=== PATIENT | male | born 1990 | race Caucasian/White ===

== ENCOUNTER 2023-04-12 05:29 | Inpatient (IN) | payer SELFPAY ==
[2023-04-12] VITALS (25 sets, daily range): BP systolic 71–138; BP diastolic 32–86; PULSE 88–125; RESP 10–23; TEMP 36.1–37.8; O2SAT 75–98; BMI 30.4; BMI 30.2
[2023-04-12] MEDS: Ondansetron 4 MG/2 ML Vial IV ×2 (05:37→05:52)
[2023-04-12] MEDS: Nitroglycerin (INPATIENT USE) 0.4 MG TAB.SUBL 0.400000000000000022 MG SL (05:57)
--- NOTE | 2023-04-12 05:59 | ED.RN ---
PT VOMITED [facility]B HOP AND TWICE ONCE AT [facility], PT WAS MEDICATED WITH ZOFRAN AT 0537 AND 0552, CPS AT BEDSIDE WITH BIPAP, OXYGEN 88% ON 15L HIGH FLOW OXYGEN.
[2023-04-12 06:03] LABS: Absolute Lymphocyte Count 2.44 X10^3/uL (0.83-4.51); Absolute Neutrophil Count 5.1 X10^3/uL (2.0-7.7); Basophil# 0.07 X10^3/uL; Basophil% 0.9 % (0-1); Eosinophil# 0.03 X10^3/uL; Eosinophils% 0.4 % (0-5); Hematocrit 48.2 % (40-54); Hemoglobin 14.8 g/dL (13.0-16.5); Lymphocyte # 2.44 X10^3/ul (0.83-4.51); Lymphocyte % 29.8 % (19-41); Mean Corp Hgb Conc 30.7 g/dL (32-36); Mean Corpuscular Hgb 28.8 pg (27.0-32.0); Mean Platelet Vol. 8.7 fl (6.2-12.0); Monocyte% 6.1 % (0-10); NRBC Flagged by Analyzer 0 % (0-5); Neutrophil # 5.09 X10^3/uL (2.7-7.7); Neutrophil % 61.9 % (47-70); Platelet Count 432 K/mm3 (150-450); RBC Distribution Width CV 13.1 % (11.6-14.6); RBC Distribution Width SD 45.5 fl (35.1-43.9); Red Blood Count 5.13 M/mm3 (4.6-6.2); White Blood Count 8.2 K/mm3 (4.4-11.0)
--- NOTE | 2023-04-12 06:16 | RAD_ITS ---
INDICATION: dyspnea EXAMINATION/TECHNIQUE: X-RAY - XR Chest 1 View AP portable. 6:21 AM COMPARISON: None. FINDINGS: LINES/DEVICES: None. LUNGS: Alveolar infiltrates throughout the right lung and in the left upper lobe. No pneumothorax. MEDIASTINUM: Unremarkable. CARDIAC SILHOUETTE: Not enlarged. BONES AND SOFT TISSUES: No acute abnormalities. RAD/Chest 1 View (Portable) IMPRESSION: Bilateral airspace disease consistent with pneumonia. Electronically Signed: Nydia Fowler MD at 6:52 EST ,
[2023-04-12 06:18] LABS: Anion Gap 15 (5-15); BUN 11 mg/dL (7-18); BUN/Creat Ratio 7.2 RATIO (10-20); Calcium,Total 7.9 mg/dL (8.5-10.1); Chloride 109 mmol/L (98-107); Creatinine, Serum 1.53 mg/dL (0.70-1.30); EST Glomerular Filtration Rate 56 mL/min (>60); Est Glom Filt Rate - Afr Amer 68 mL/min (>60); Estimated Creatinine Clearance 75.37 ml/min; Glucose 198 mg/dL (74-106); Potassium 3.6 mmol/L (3.5-5.1); Sodium Level 143 mmol/L (136-145)
[2023-04-12] MEDS: Ampicillin/Sulbactam 3 GM in 0.9% Normal Saline (100mL MB+) 100 ML IV (06:46)
--- NOTE | 2023-04-12 07:00 | CPS ---
BiPAP mask removed, patient stating he was going to vomit. Place on 13lpm high flow nasal cannula. RN alerted. BiPAP on standby, aware.
[2023-04-12] MEDS: Metoclopramide 10 MG/2 ML Vial IV (07:11)
--- NOTE | 2023-04-12 07:24 | CT_ITS ---
STUDY: CT CHEST WITHOUT CONTRAST REASON FOR EXAM: Male, 32 years old. Pulmonary edema RADIATION DOSAGE (If Supplied By Facility): CTDIvol = ( 18.01 ) mGy, DLP = ( 648.01 ) mGycm TECHNIQUE: Transaxial imaging was performed without the administration of intravenous contrast material. Individualized dose optimization techniques were used for this CT. COMPARISON: Chest x-ray dated April 12, 2023 FINDINGS: Mild patchy consolidation with groundglass edema is present throughout the bilateral upper lobes and the right lower lobe. Mild patchy infiltrates are also present in the posterior medial aspect of the left lower lobe. The small islands of consolidation with adjacent groundglass edema is a pattern typically seen with Covid 19 pneumonia. There is no demonstrated pleural abnormality. Normal heart and pericardium. There are no demonstrated calcifications of the coronary arteries. Normal mediastinum. Normal hilar regions. Normal unenhanced pulmonary arteries. Normal aorta arch and descending thoracic aorta. Normal osseous structures. There is no demonstrated abnormality of the visualized upper abdomen. CT/Chest without Contrast IMPRESSION: Mild multifocal pneumonia 1. Mild patchy consolidation with groundglass edema is present throughout the bilateral upper lobes and the right lower lobe. Mild patchy infiltrates are also present in the posterior medial aspect of the left lower lobe. The small islands of consolidation with adjacent groundglass edema is a pattern typically seen with Covid 19 pneumonia. Electronically Signed: Osiel Soto MD at 8:51 EST ,
--- NOTE | 2023-04-12 07:25 | EKG12_ITS ---
Test Reason : TACHY Blood Pressure : / mmHG Vent. Rate : 093 BPM Atrial Rate : 093 BPM P-R Int : 162 ms QRS Dur : 092 ms QT Int : 366 ms P-R-T Axes : 063 075 050 degrees QTc Int : 455 ms Normal sinus rhythm Normal ECG Confirmed by PRITI BAKER, JERRY ([id number]), associate entertainment editor EMILY BURCIAGA ([id number]) on 04/14/2023 8:38:04 AM Referred By: Confirmed By:JERRY MARCOS MD
[2023-04-12 07:26] LABS: BNP,B-Type NATRIURETIC PEPTIDE 5.7 pg/mL (0-100)
[2023-04-12 07:28] LABS: Amphetamine Urine VISTA NEGATIVE (<1000 ng/mL); Barbiturate Urine VISTA NEGATIVE (< 200 ng/mL); Benzodiazepine Urine VISTA NEGATIVE (< 200 ng/mL); Cocaine Urine VISTA POSITIVE (< 300 ng/mL); Ecstacy Urine VISTA NEGATIVE (< 500 ng/mL); Methadone Urine VISTA NEGATIVE (< 300 ng/mL); PCP Urine VISTA NEGATIVE (< 25 ng/mL); THC Urine VISTA NEGATIVE (< 50 ng/mL); Vista UDS pH Range 5
--- NOTE | 2023-04-12 07:28 | NURSING ---
DR ALOK TATE
--- NOTE | 2023-04-12 07:33 | NURSING ---
NO OLD EKGS
[2023-04-12] MEDS: 0.9% Normal Saline (1000mL) 1,000 ML 999 ML IV ×2 (07:39→08:21)
--- NOTE | 2023-04-12 07:46 | EX.ED.DYSGE1 ---
HPI History of Present Illness Chief Complaint: Overdose Informant: EMS Narrative Narrative: Patient is a 32-year-old male brought in by EMS. EMS states that they were called to a alliance party where multiple people had overdosed. They state when they arrived the patient was unresponsive and breathing minimally. They state they gave 7 doses of Narcan before he began to arouse. They state that his mental status has continued to be depressed and he has been having bouts of nausea and vomiting with increased work of breathing. Patient admits to alcohol use this evening but denies any illicit drug use and is unsure of what happened caused him to be in the hospital [facility] Medical History no medical history no medical history Home Medications NK 04/12/23 [History Last Taken Unknown] Allergy/AdvReac Type Severity Reaction Status Date / Time No Known Allergies Allergy Verified 04/12/23 05:39 Social History Smoking Status: Never smoker ROS ROS ED ROS Narrative Review of systems is unable to be obtained secondary to patient's difficulty breathing EXAM Physical Exam Const Vital Signs: 04/12/23 05:39 04/12/23 05:45 04/12/23 06:02 Temperature 96.9 F L 96.9 F L Temperature Source Temporal Temporal Pulse Rate 107 H 107 H 120 H Respiratory Rate 18 18 18 Respiratory Pattern Blood Pressure 121/64 H 114/64 78/52 L Blood Pressure Mean 83 80 60 Pulse Ox 75 87 85 Oxygen Delivery Method Room Air High Flow High Flow Oxygen Flow Rate (L/min) 15 15 Fraction of Inspired Oxygen (FIO2) 04/12/23 06:04 04/12/23 06:07 04/12/23 05:57 Temperature Temperature Source Pulse Rate 116 H 115 H 107 H Respiratory Rate 18 18 Respiratory Pattern Blood Pressure 71/55 L 92/63 121/64 H Blood Pressure Mean 60 72 Pulse Ox 87 85 Oxygen Delivery Method High Flow High Flow Oxygen Flow Rate (L/min) 15 15 Fraction of Inspired Oxygen (FIO2) 04/12/23 06:23 04/12/23 06:31 04/12/23 06:15 Temperature Temperature Source Pulse Rate 96 92 105 H Respiratory Rate 18 18 18 Respiratory Pattern Normal Blood Pressure 92/32 L 94/35 L Blood Pressure Mean 52 54 Pulse Ox 97 97 96 Oxygen Delivery Method Bi-pap Bi-pap Oxygen Flow Rate (L/min) Fraction of Inspired Oxygen (FIO2) 100 90 100 04/12/23 06:15 04/12/23 06:29 04/12/23 06:53 Temperature Temperature Source Pulse Rate 101 H 92 Respiratory Rate 20 H 18 Respiratory Pattern Blood Pressure 110/67 Blood Pressure Mean 81 Pulse Ox 85 97 97 Oxygen Delivery Method Nasal Cannula Bi-pap Oxygen Flow Rate (L/min) Fraction of Inspired Oxygen (FIO2) 90 75 04/12/23 06:53 04/12/23 07:17 04/12/23 06:35 Temperature Temperature Source Pulse Rate 88 101 H Respiratory Rate 18 23 H Respiratory Pattern Blood Pressure 110/67 Blood Pressure Mean 81 Pulse Ox 97 95 98 Oxygen Delivery Method High Flow Oxygen Flow Rate (L/min) 14 Fraction of Inspired Oxygen (FIO2) 75 04/12/23 07:17 04/12/23 08:08 Temperature 97.2 F L 97.8 F Temperature Source Temporal Temporal Pulse Rate 89 102 H Respiratory Rate 20 H 20 H Respiratory Pattern Blood Pressure 97/52 L 96/86 H Blood Pressure Mean 67 89 Pulse Ox 95 97 Oxygen Delivery Method High Flow High Flow Oxygen Flow Rate (L/min) 14 11 Fraction of Inspired Oxygen (FIO2) Positive well nourished and well developed Constitutional Narrative: Patient has depressed mental status with GCS 13. He is in moderate respiratory distress with tachypnea and accessory muscle use and pulse ox of 75% on room air General Appearance ED: well developed HEENT HEENT Narrative: No tongue or lip swelling No airway edema or compromise Normocephalic atraumatic Eyes EOMs intact bilaterally Eyes Narrative: Pupils are midpoint and sluggish to respond to light There is mild scleral injection bilaterally consistent with reported alcohol use Neck supple Neck Narrative: No bony deformity or step-off of the cervical spine No nuchal rigidity noted Chest Wall palpation of chest normal Chest Narrative: No bony deformity or crepitance noted Resp Resp Narrative: Patient is in respiratory distress with tachypnea and accessory muscle use Breath sounds are diminished throughout with diffuse rhonchi Cardio regular rhythm Rate: tachycardic and other Other Details: Tachycardic rate with regular rhythm no murmurs rubs or gallops noted GI non-tender, non-distended and no masses GI Narrative: Abdomen is soft nontender and nondistended with hypoactive bowel sounds No pulsatile mass or fluid wave noted No voluntary guarding or rigidity Auscultation: hypoactive bowel sounds Palpation: soft Extremity normal to inspection Extremity Narrative: No asymmetric edema no pitting edema negative Homans' sign bilaterally Neuro CN's II-XII intact bilaterally Neuro Narrative: Patient is obtunded with GCS of 13 however there are no focal neurologic deficits noted Sensorium / Orientation: alert Psych Psych Narrative: Patient has a flat affect Skin no rashes or lesions noted Skin Narrative: Skin is pale in color No abrasions or ecchymosis to suggest trauma MDM MDM MDM Narrative Medical decision making narrative: Patient presented to the ER in acute respiratory distress with hypoxia. Based on his opioid overdose and bouts of vomiting there is concern for aspiration but as he was given multiple doses of Narcan and has been bringing up pink frothy sputum there is also concern for flash pulmonary edema. Secondary to his fluids were held and after his nausea and vomiting was controlled he was started on BiPAP. BiPAP brought his pulse ox up from the low 80s on 15 L nasal cannula to the mid 90s. X-ray confirmed pulmonary edema versus aspiration and it was greater on the right indicating this is most likely aspiration. The patient had another bout of vomiting despite his 2 doses of Zofran and dose of Reglan. Therefore the BiPAP was removed and he was placed on high flow nasal cannula however this time at 11 L his pulse ox was 95%. He was started on Unasyn secondary to the aspiration and given 2 L of normal saline as his proBNP is normal and with more right-sided changes this is most likely aspiration. A blood gas was obtained and revealed no significant elevation to his CO2 and the patient will awake to voice and follow commands and respond and therefore do not feel there is a need for intubation. Blood cultures were also obtained secondary to the aspiration aspect. At this time as he requires high flow nasal cannula and is at risk for potential sepsis secondary to his aspiration he will be admitted to the ICU for continued monitoring and further care. Case was discussed with the hospitalist and they agree with the plan of action Lab Data Attestation: I reviewed the patient's lab results. Labs: Laboratory Results - last 24 hr 04/12/23 04/12/23 05:57 06:15 WBC 8.2 RBC 5.13 Hgb 14.8 Hct 48.2 MCV 94.0 MCH 28.8 MCHC 30.7 L RDW Std Deviation 45.5 H RDW Coeff of Behzad 13.1 Plt Count 432 MPV 8.7 Immature Gran % (Auto) 0.900 Neut % (Auto) 61.9 Lymph % (Auto) 29.8 [place] % (Auto) 6.1 Eos % (Auto) 0.4 Baso % (Auto) 0.9 Absolute Neuts (auto) 5.1 Absolute Lymphs (auto) 2.44 Nucleated RBC % 0 Sodium 143 Potassium 3.6 Chloride 109 H Carbon Dioxide 19.0 L Anion Gap 15 BUN 11 Creatinine 1.53 H Estim Creat Clear Calc 75.37 Est GFR (MDRD) Af Amer 68 Est GFR (MDRD) Non-Af 56 L BUN/Creatinine Ratio 7.2 L Glucose 198 H Calcium 7.9 L B-Natriuretic Peptide 5.7 Urine Opiates Screen NEGATIVE Urine Methadone Screen NEGATIVE Ur Barbiturates Screen NEGATIVE Ur Phencyclidine Scrn NEGATIVE Ur Amphetamines Screen NEGATIVE MDMA (Ecstasy) Screen NEGATIVE U Benzodiazepines Scrn NEGATIVE Urine Cocaine Screen POSITIVE H U Cannabinoids Screen NEGATIVE Ur Drug Screen Comment Ethyl Alcohol 183.0 ABG Data ABG results: ABG 04/12/23 07:51 Specimen Type ART Sample Site L Radial pH 7.28 L Bicarbonate Actual 21.3 L Total CO2 23 Base Excess -6 L O2 Saturation 96 O2 % 11.0 ABG pCO2 45.6 H ABG pO2 96 Jose Test Positive O2 Delivery Device HFNC Vent Mode Not entered Radiography Diagnostic Testing: Clinical Impression(s) from Imaging Studies Chest X-Ray 04/12/23 06:16 IMPRESSION: Bilateral airspace disease consistent with pneumonia. Electronically Signed: Nydia Fowler MD at 6:52 EST Reading Location ID and State: [facility] / [place] Tel , Service support , Chest x-ray as interpreted by the emergency medicine physician reveals diffuse bilateral airspace disease versus pulmonary edema concerning for flash pulmonary edema versus pneumonia Critical Care Time Critical Care Time: Yes Critical care time (excluding procedures): Discussing w/Patient &/or Family/General Lithographic Worker, Discussing w/Consultants and - (Critical care time of 37 minutes) Discharge Plan Dx/Rx/DC Orders Clinical Impression: Acute respiratory failure with hypoxia, Alcohol intoxication, Aspiration pneumonia, Opioid overdose Disposition Disposition: [facility] Care [facility]
[2023-04-12 07:55] LABS: Allen Test Positive; Base Excess -6 mmol/L (-2 to +2); Bicarbonate 21.3 mmol/L (22-26); Blood Gas Specimen Type ART; Mode Not entered; O2 Delivery Device HFNC; PO2 96 mmHG (75-100); SITE L Radial; SO2 96 % (95-99); Total Carbon Dioxide 23 mmol/L; pCO2 45.6 mmHg (35-45); pH 7.28 (7.35-7.45)
--- NOTE | 2023-04-12 08:00 | NURSING ---
ICU ALOK ASPIRATION PNEUMONIA WITH ACUTE RESP FAILURE
[2023-04-12 08:29] LABS: Lactic Acid 4.3 mmol/L (0.4-1.9)
--- NOTE | 2023-04-12 08:31 | HP.PCM.HOS_ITS ---
HPI - General General Date of Admission: 04/12/23 Date of Service: 04/12/23 Chief Complaint: Mental status change HPI Narrative STEFANY LOREDO, is a 32 M who presented to the emergency department at [facility] on 04/12/2023 after being brought in by EMS for mental status change. EMS stated that they were called to a libertarian where multiple people had overdose. They stated that when they arrived this patient was unresponsive and breathing minimally. They report they gave 7 doses of Narcan before he began to arouse. His mental status continued to be to depressed after the Narcan and he had multiple bouts of nausea and vomiting with increased work of breathing. The patient admitted to alcohol use on the night prior to admission but denied any illicit drug use and is unsure what caused him to come to the hospital. The patient adamantly denied any other illicit use drugs despite his toxicology screen being positive for cocaine. Per discussion with the ER physician almost all of the people brought in were able to respond to Narcan and were sent home so we are wondering whether or not the cocaine that was used was laced with fentanyl as well as this would not be detected on her toxicology screen. The ER physician stated he was coughing up some pink frothy phlegm when he came in so there was concern that he had some flash pulmonary edema related to the cocaine use however there is no clinical data that suggest heart failure or flash pulmonary edema at this time. Vital signs on presentation showed a temperature of 97.2, heart rate of 107, blood pressure 121/64, oxygen saturation 85% on 15 L high flow. Patient was placed on BiPAP and this improved his oxygen saturations up into the 95 to 99% range however he started having vomiting so a had to be taken off BiPAP. His blood pressure subsequently dropped as well with a low of 71/55 and he was given 2 L of IV fluid. Blood pressure has responded to IV fluids and most recent pressure is 96/86. He is currently on high flow oxygen at 11 L/min. CBC is unremarkable. His chemistry panel shows a mild acidosis with a bicarb of 19 and an anion gap of 15 which is right at the cutoff for an elevated anion gap. His BUN is 11 but his serum creatinine is 1.53 and he has no baseline history of renal disease and we have no previous data in our system. His blood glucose was 198 and his calcium was normal. Lactic acid was 4.3. BNP was 5.7. His toxic ology screen was positive for cocaine and his alcohol level was 183. An ABG was obtained and it appears that he has a mixed metabolic and respiratory acidosis with a pH of 7.28/pCO2 of 45.6/pO2 of 96 on heated high flow at 15 L/min. Chest x-ray shows bilateral patchy airspace disease consistent with bilateral pneumonia and CT of the chest shows the same. EKG is normal sinus rhythm with normal intervals and no ischemic changes. Emergency department he was treated with 2 L of IV fluids, Unasyn for aspiration coverage, Reglan x 1, nitroglycerin due to concern for flash pulm edema and Zofran. He was admitted to the ICU for ongoing care. [facility] Medical History no medical history no medical history Home Medications NK 04/12/23 [History Last Taken Unknown] Allergy/AdvReac Type Severity Reaction Status Date / Time No Known Allergies Allergy Verified 04/12/23 05:39 no significant family history no surgical history Social History (Updated 04/12/23 @ 08:[address] Alicia Gusman, DO) Smoking Status: Never smoker alcohol intake: current alcohol intake frequency: a few times a week substance use type: does not use ROS ROS Narrative Patient was somnolent and this was very difficult to obtain. Patient would only answer questions minimally by shaking his head. Vital Signs Vital Signs Vital Signs: 04/12/23 05:39 04/12/23 05:45 04/12/23 06:02 Temperature 96.9 F L 96.9 F L Temperature Source Temporal Temporal Pulse Rate 107 H 107 H 120 H Respiratory Rate 18 18 18 Respiratory Pattern Blood Pressure 121/64 H 114/64 78/52 L Blood Pressure Mean 83 80 60 Pulse Ox 75 87 85 Oxygen Delivery Method Room Air High Flow High Flow Oxygen Flow Rate (L/min) 15 15 Fraction of Inspired Oxygen (FIO2) 04/12/23 06:04 04/12/23 06:07 04/12/23 05:57 Temperature Temperature Source Pulse Rate 116 H 115 H 107 H Respiratory Rate 18 18 Respiratory Pattern Blood Pressure 71/55 L 92/63 121/64 H Blood Pressure Mean 60 72 Pulse Ox 87 85 Oxygen Delivery Method High Flow High Flow Oxygen Flow Rate (L/min) 15 15 Fraction of Inspired Oxygen (FIO2) 04/12/23 06:23 04/12/23 06:31 04/12/23 06:15 Temperature Temperature Source Pulse Rate 96 92 105 H Respiratory Rate 18 18 18 Respiratory Pattern Normal Blood Pressure 92/32 L 94/35 L Blood Pressure Mean 52 54 Pulse Ox 97 97 96 Oxygen Delivery Method Bi-pap Bi-pap Oxygen Flow Rate (L/min) Fraction of Inspired Oxygen (FIO2) 100 90 100 04/12/23 06:15 04/12/23 06:29 04/12/23 06:53 Temperature Temperature Source Pulse Rate 101 H 92 Respiratory Rate 20 H 18 Respiratory Pattern Blood Pressure 110/67 Blood Pressure Mean 81 Pulse Ox 85 97 97 Oxygen Delivery Method Nasal Cannula Bi-pap Oxygen Flow Rate (L/min) Fraction of Inspired Oxygen (FIO2) 90 75 04/12/23 06:53 04/12/23 07:17 04/12/23 06:35 Temperature Temperature Source Pulse Rate 88 101 H Respiratory Rate 18 23 H Respiratory Pattern Blood Pressure 110/67 Blood Pressure Mean 81 Pulse Ox 97 95 98 Oxygen Delivery Method High Flow Oxygen Flow Rate (L/min) 14 Fraction of Inspired Oxygen (FIO2) 75 04/12/23 07:17 04/12/23 08:08 Temperature 97.2 F L 97.8 F Temperature Source Temporal Temporal Pulse Rate 89 102 H Respiratory Rate 20 H 20 H Respiratory Pattern Blood Pressure 97/52 L 96/86 H Blood Pressure Mean 67 89 Pulse Ox 95 97 Oxygen Delivery Method High Flow High Flow Oxygen Flow Rate (L/min) 14 11 Fraction of Inspired Oxygen (FIO2) Weight Weight: 101.8 kg Body Mass Index (BMI) 30.4 Physical Exam Const alert, no apparent distress, average body habitus and well nourished; Negative for oriented x3 Constitutional Narrative: Young, white male, muscular body habitus, somnolent but able to follow commands, not really to have much of a conversation with me during the exam, no signs of distress and appears overall nontoxic General Appearance: cooperative Orientation / Consciousness: confused HEENT normocephalic, head/scalp atraumatic, hearing grossly normal bilaterally and moist oral mucous membranes HEENT Narrative: Mallampati 3, dentition is good, no thrush Eyes PERRL, EOMs intact bilaterally and conjunctivae normal Eyes Narrative: No scleral icterus, pupils are about 4 mm bilaterally and symmetrical Neck no lymphadenopathy and supple Neck Narrative: Trachea is midline, no thyroid enlargement Resp normal respiratory effort, no retractions, no use of accessory muscles and clear to auscultation bilaterally Auscultation: Negative for rales, rhonchi or wheezes Cardio regular rhythm, S1 normal heart sound, S2 normal heart sound, no murmurs, no rub, no gallops and no clicks Cardio Narrative: Mild tachycardia GI normal to inspection, nondistended, normoactive bowel sounds, soft to palpation and non-tender Extremity no clubbing, cyanosis or edema Extremity Narrative: Pedal pulses are 2+ Skin no wounds, skin turgor normal, no jaundice, no petechiae and no mottling Skin Narrative: Several tattoos, no identified track sharma Neuro oriented x3, CN's II-XII intact bilaterally, moves all extremities and no focal motor deficits Speech: Negative for speech normal Psych Psych Narrative: Affect is flattened patient is minimally willing to participate with examination Results Lab / Micro Data Attestation: I reviewed the patient's lab results. 04/12/23 05:57 04/12/23 05:57 Labs: Laboratory Results - last 24 hr 04/12/23 05:57: WBC 8.2, RBC 5.13, Hgb 14.8, Hct 48.2, MCV 94.0, MCH 28.8, MCHC 30.7 L, RDW Std Deviation 45.5 H, RDW Coeff of Behzad 13.1, Plt Count 432, MPV 8.7, Immature Gran % (Auto) 0.900, Neut % (Auto) 61.9, Lymph % (Auto) 29.8, [place] % (Auto) 6.1, Eos % (Auto) 0.4, Baso % (Auto) 0.9, Absolute Neuts (auto) 5.1, Absolute Lymphs (auto) 2.44, Nucleated RBC % 0, Sodium 143, Potassium 3.6, Chloride 109 H, Carbon Dioxide 19.0 L, Anion Gap 15, BUN 11, Creatinine 1.53 H, Estim Creat Clear Calc 75.37, Est GFR (MDRD) Af Amer 68, Est GFR (MDRD) Non-Af 56 L, BUN/Creatinine Ratio 7.2 L, Glucose 198 H, Calcium 7.9 L, B-Natriuretic Peptide 5.7, Ethyl Alcohol 183.0 04/12/23 06:15: Urine Opiates Screen NEGATIVE, Urine Methadone Screen NEGATIVE, Ur Barbiturates Screen NEGATIVE, Ur Phencyclidine Scrn NEGATIVE, Ur Amphetamines Screen NEGATIVE, MDMA (Ecstasy) Screen NEGATIVE, U Benzodiazepines Scrn NEGATIVE, Urine Cocaine Screen POSITIVE H, U Cannabinoids Screen NEGATIVE, Ur Drug Screen Comment 04/12/23 07:36: Lactic Acid 4.3 H* ABG Data ABG results: ABG 04/12/23 07:51 Specimen Type ART Sample Site L Radial pH 7.28 L Bicarbonate Actual 21.3 L Total CO2 23 Base Excess -6 L O2 Saturation 96 O2 % 11.0 ABG pCO2 45.6 H ABG pO2 96 Jose Test Positive O2 Delivery Device HFNC Vent Mode Not entered Imagaing Radiology Impression Chest X-Ray 04/12/23 06:16 IMPRESSION: Bilateral airspace disease consistent with pneumonia. Electronically Signed: Nydia Fowler MD at 6:52 EST Reading Location ID and State: [address] [place] [address] Tel , Service support , Assessment & Plan Assessment/Plan (1) Acute respiratory failure with hypoxia: (2) Alcohol intoxication: (3) Aspiration pneumonia: (4) Opioid overdose: (5) Cocaine use: (6) LILY (acute kidney injury): (7) Respiratory acidosis: (8) Metabolic acidosis: (9) Lactic acidosis: (10) Acute hypoxic on chronic hypercapnic respiratory failure: (11) Toxic metabolic encephalopathy: PLAN: Plan Acute hypoxic and hypercapnic respiratory failure secondary to aspiration pneumonitis/pneumonia due to suspected opiate overdose -Patient hypoxic on room air and required up to 15 L heated high flow nasal cannula to improve oxygen saturations -ABG showed a pH of 7.28 with a bicarb of 21.3 and a pCO2 of 45.6/pO2 was 96 on 15 L -Chest x-ray and CT both show patchy bilateral airspace disease -Check COVID/flu/RSV -Check respiratory viral panel -Check strep pneumo and Legionella antigens -Start Levaquin and if atypicals are ruled out will transition to Unasyn for aspiration coverage -Continue supplemental oxygen--> currently on heated high flow at 11 L/min -Wean as able -Patient is not oxygen dependent at baseline -I-S/Acapella -As needed albuterol Mixed metabolic and respiratory acidosis/lactic acidosis -Both should improve with time -Will hold off on any bicarb for now and reassess CMP later this afternoon -Repeat lactate per protocol LILY -Likely related to dehydration due to the above -2 L IV fluids given -Repeat BMP in a.m. -Avoid nephrotoxins as able Toxic/metabolic encephalopathy -Patient will arouse but still very somnolent and difficult to get a history from -Should clear with time and likely multifactorial from substance use/alcohol use/aspiration/acidosis -Monitor Cocaine use -Toxicology screen is positive for cocaine -I highly suspect that this was laced with fentanyl due to the response to Narcan -Patient got 7 rounds of Narcan with improvement in mental status but not yet to baseline -Highly recommend cessation DVT prophylaxis -Subcu Lovenox CODE STATUS Full code Charges/Coding Visit Charges Inpatient E&M: 79602 Init Hosp L2
[2023-04-12 09:26] LABS: AST(SGOT) 37 U/L (15-37); Alanine Aminotransfer ALT/SGPT 40 U/L (16-61); Albumin, Serum 3.6 g/dL (3.2-5.0); Alkaline Phosphatase 25 U/L (45-117); Bilirubin, Direct 0.08 mg/dL (0.00-0.30); Globulin 3.6 g/dL (2.2-4.2); Protein, Total 7.2 g/dL (6.4-8.2)
--- NOTE | 2023-04-12 09:30 | NURSING ---
Pt had a visitor come in accompanied by his girlfriend. The friend states they are like brothers and are in contact daily. This friend, Kartik goes by Santiago Rueda and his girlriend were taken to room to speak with the pt. Pt was awakened and this RN asked if I could give the friend information. Pt stated tell them whatever you want , tearful. This RN also asked if we were able to call his mother to make her aware of the situation, to which the pt declined. Gave the friends an update of current medical conditions, clinical findings, and basic knowledge of events leading to hospitalization.
[2023-04-12] MEDS: proCHLORPERazine 10 MG/2 ML Vial 5 MG IV (10:04)
[2023-04-12 11:43] LABS: Reflex Lactate? Y
[2023-04-12] MEDS: levoFLOXacin IV 750 MG/150 ML BAG 100 MG IV (12:03)
[2023-04-12 12:47] LABS: Lactic Acid 1.7 mmol/L (0.4-1.9); Procalcitonin 0.24 ng/mL (0.00-0.09)
--- NOTE | 2023-04-12 15:01 | EX.PCM.CONCC ---
Assessment & Plan Assessment/Plan (1) Toxic metabolic encephalopathy: (2) Acute hypoxic on chronic hypercapnic respiratory failure: (3) Lactic acidosis: (4) Respiratory acidosis: (5) Cocaine use: PLAN: Plan Assessment Acute hypoxic and hypercapnic respiratory failure Concern for aspiration pneumonia Metabolic encephalopathy COVID-pneumonia Cocaine use simply laced with fentanyl as patient required 7 doses of Narcan with improvement of his mental status but not back to baseline LILY Lactic acidosis Plan Patient was initially on 15 L nonrebreather. He underwent CT scan of the chest which showed bilateral patchy infiltrates. He was then weaned down to 3 L in the ICU and due to bed shortages and 2 active code STEMI's pt was transferred to PCU Start patient on remdesivir and Decadron He is on Levaquin. Pending urine Legionella. At this time his Pro-Josse is negative and if he continues to improve antibiotics can be stopped or he can be switched to unasyn if concern for aspiration PNA persists Aspiration precautions He was given 2 L of IV fluids for his LILY. Repeat BMP in the morning Lactic acidosis appears to be improved DVT prophylaxis Lovenox I spent 33 minutes of critical care time excluding the procedure time. I reviewed lab work, images, previous records and medication list. HPI Consult Data Date of Consult: 04/12/23 HPI Narrative Reason for Consultation: Acute hypoxic and hypercapnic respiratory failure HPI Narrative: STEFANY LOREDO, is a 32 M who is otherwise healthy presented to The ER this morning after brought being brought in by EMS for altered mental status. Patient was apparently in a republican with several people who overdosed. Was found to have an alcohol level and positive cocaine. Some of the republican goers were also intoxicated and obtunded and responded to Narcan. In the ED patient was coughing up pink frothy phlegm and his chest x-ray showed bilateral patchy airspace disease worse on the right. He was requiring 15 L heated high flow however improved in the ICU and was weaned down to nasal cannula 3 L. Evaluation patient was lethargic but arousable and was able to speak. He said he was not sure where what happened yesterday. Patient's brother was at bedside noted that the patient is not usually a drug user. Patient was also found to be COVID-positive. He will be treated with empiric antibiotics and steroids as well as remdesivir. It was transferred down to [facility] Medical History no medical history Home Medications NK 04/12/23 [History Last Taken Unknown] Allergy/AdvReac Type Severity Reaction Status Date / Time No Known Allergies Allergy Verified 04/12/23 05:39 Family History no significant family his Surgical History no surgical history Social History (Updated 04/12/23 @ 08:[address] Alicai Gusman, DO) Smoking Status: Never smoker alcohol intake: current alcohol intake frequency: a few times a week substance use type: does not use ROS ROS Narrative Pertinent positives and pertinent negatives as noted in HPI. All other systems were reviewed and are negative Physical Exam Narrative General allergic but arousable HEENT. Normocephalic atraumatic, pupils equal and reactive Respiratory creased air entry bilaterally, rhonchi bilaterally Cardiac S1-S2, regular rate and rhythm GI abdomen soft and nontender MSK no lower extremity edema Skin no rashes Neuro moves all extremities, no dysarthria, no facial droop Lab / Micro Data 04/12/23 05:57 04/12/23 05:57 Labs: Laboratory Results - last 24 hr 04/12/23 05:57: WBC 8.2, RBC 5.13, Hgb 14.8, Hct 48.2, MCV 94.0, MCH 28.8, MCHC 30.7 L, RDW Std Deviation 45.5 H, RDW Coeff of Behzad 13.1, Plt Count 432, MPV 8.7, Immature Gran % (Auto) 0.900, Neut % (Auto) 61.9, Lymph % (Auto) 29.8, [place] % (Auto) 6.1, Eos % (Auto) 0.4, Baso % (Auto) 0.9, Absolute Neuts (auto) 5.1, Absolute Lymphs (auto) 2.44, Nucleated RBC % 0, Sodium 143, Potassium 3.6, Chloride 109 H, Carbon Dioxide 19.0 L, Anion Gap 15, BUN 11, Creatinine 1.53 H, Estim Creat Clear Calc 75.37, Est GFR (MDRD) Af Amer 68, Est GFR (MDRD) Non-Af 56 L, BUN/Creatinine Ratio 7.2 L, Glucose 198 H, Calcium 7.9 L, Total Bilirubin 0.20, Direct Bilirubin 0.08, AST 37, ALT 40, Alkaline Phosphatase 25 L, B-Natriuretic Peptide 5.7, Total Protein 7.2, Albumin 3.6, Globulin 3.6, Ethyl Alcohol 183.0 04/12/23 06:15: Urine Opiates Screen NEGATIVE, Urine Methadone Screen NEGATIVE, Ur Barbiturates Screen NEGATIVE, Ur Phencyclidine Scrn NEGATIVE, Ur Amphetamines Screen NEGATIVE, MDMA (Ecstasy) Screen NEGATIVE, U Benzodiazepines Scrn NEGATIVE, Urine Cocaine Screen POSITIVE H, U Cannabinoids Screen NEGATIVE, Ur Drug Screen Comment 04/12/23 07:36: Lactic Acid 4.3 H* 04/12/23 12:00: Lactic Acid 1.7, Procalcitonin 0.24 H Micro: Microbiology 04/12/23 09:27 Mucosa - Nasopharyngeal Coronavirus COVID-19 PCR - Final SARS-CoV-2 (COVID 19 PCR) 04/12/23 09:27 Mucosa - Nasopharyngeal Respiratory Panel (PCR) - Final ABG Data ABG results: ABG 04/12/23 07:51 Specimen Type ART Sample Site L Radial pH 7.28 L Bicarbonate Actual 21.3 L Total CO2 23 Base Excess -6 L O2 Saturation 96 O2 % 11.0 ABG pCO2 45.6 H ABG pO2 96 Jose Test Positive O2 Delivery Device HFNC Vent Mode Not entered Imagaing Radiology Impression Chest X-Ray 04/12/23 06:16 IMPRESSION: Bilateral airspace disease consistent with pneumonia. Electronically Signed: Nydia Fowler MD at 6:52 EST , Chest CT 04/12/23 07:24 IMPRESSION: Mild multifocal pneumonia 1. Mild patchy consolidation with groundglass edema is present throughout the bilateral upper lobes and the right lower lobe. Mild patchy infiltrates are also present in the posterior medial aspect of the left lower lobe. The small islands of consolidation with adjacent groundglass edema is a pattern typically seen with Covid 19 pneumonia. Electronically Signed: Osiel Soto MD at 8:51 EST , Charges/Coding Procedures Hospitalists Procedures: 99948 Critical Care 1st Hr
[2023-04-12] MEDS: Remdesivir 200 MG in 0.9% Normal Saline (250mL Bag) 210 ML 250 MG IV (16:25)
[2023-04-12] MEDS: dexAMETHasone 4 MG Tablet 6 MG PO (16:25)
[2023-04-12 18:54] LABS: Alkaline Phosphatase 21 U/L (45-117)
[2023-04-12] MEDS: Acetaminophen 325 MG Tablet 650 MG PO (20:18)
[2023-04-12] MEDS: guaiFENesin 10 ML UDC (200MG/10ML) PO (20:30)
[2023-04-13] MEDS: Acetaminophen 325 MG Tablet 650 MG PO (04:47)
[2023-04-13 05:32] VITALS: BMI 29.6
[2023-04-13 06:00] LABS: Absolute Lymphocyte Count 0.77 X10^3/uL (0.83-4.51); Basophil# 0.02 X10^3/uL; Basophil% 0.2 % (0-1); Eosinophil# 0.01 X10^3/uL; Eosinophils% 0.1 % (0-5); Hematocrit 42.3 % (40-54); Hemoglobin 13.4 g/dL (13.0-16.5); Lymphocyte # 0.77 X10^3/ul (0.83-4.51); Lymphocyte % 5.8 % (19-41); Mean Corp Hgb Conc 31.7 g/dL (32-36); Mean Corpuscular Hgb 29.7 pg (27.0-32.0); Mean Corpuscular Volume 93.8 fL (80-94); Monocyte# 0.45 X10^3/uL; Monocyte% 3.4 % (0-10); NRBC Flagged by Analyzer 0 % (0-5); Neutrophil # 12.01 X10^3/uL (2.7-7.7); Platelet Count 315 K/mm3 (150-450); RBC Distribution Width CV 13.2 % (11.6-14.6); RBC Distribution Width SD 45.2 fl (35.1-43.9); Red Blood Count 4.51 M/mm3 (4.6-6.2); White Blood Count 13.3 K/mm3 (4.4-11.0)
[2023-04-13 06:23] LABS: ALB/GLOB Ratio 0.9 RATIO (0.9-2.4); AST(SGOT) 33 U/L (15-37); Alanine Aminotransfer ALT/SGPT 31 U/L (16-61); Alkaline Phosphatase 21 U/L (45-117); Anion Gap 9 (5-15); BUN 15 mg/dL (7-18); BUN/Creat Ratio 15.6 RATIO (10-20); Chloride 107 mmol/L (98-107); Creatinine, Serum 0.96 mg/dL (0.70-1.30); EST Glomerular Filtration Rate 96 mL/min (>60); Est Glom Filt Rate - Afr Amer 116 mL/min (>60); Estimated Creatinine Clearance 120.13 ml/min; Globulin 3.5 g/dL (2.2-4.2); Glucose 127 mg/dL (74-106); Magnesium 2.3 mg/dL (1.6-2.6); Phosphorus 3.6 mg/dL (2.5-4.9); Potassium 4.4 mmol/L (3.5-5.1); Protein, Total 6.5 g/dL (6.4-8.2); Sodium Level 139 mmol/L (136-145)
[2023-04-13 08:15] LABS: Procalcitonin 0.27 ng/mL (0.00-0.09)
[2023-04-13 09:55] VITALS: BP 143/81; PULSE 101; RESP 16; TEMP 36.8; O2SAT 99
[2023-04-13 09:57] VITALS: O2SAT 98; O2SAT 99
[2023-04-13] MEDS: dexAMETHasone 4 MG Tablet 6 MG PO (10:03)
--- NOTE | 2023-04-13 10:27 | PCM.DC.SUM ---
Providers Date of Admission: 04/12/23 Date of Discharge: 04/13/23 Primary Care Physician: Kellie Primary Care Phys Consultations 04/12/23 10:50 Consult: [employer] Helper / Pulmonary Medicine Routine Consulting Provider: [facility] Reason for Consult: Overdose, pneumonia EMERGENT Consult: No MD Notified: Yes Date Notified: 04/12/23 Time Notified: 10:51 Method of Notification: Verbal Reason For Visit: ACUTE HYPOXIC AND HYPERCAPNIC RESPIRATORY FAILURE Diagnosis Discharge Diagnosis (1) Toxic metabolic encephalopathy: Status: Acute Code(s): G92.8 - Other toxic encephalopathy (2) Acute hypoxic on chronic hypercapnic respiratory failure: Status: Acute Code(s): J96.01 - Acute respiratory failure with hypoxia; J96.12 - Chronic respiratory failure with hypercapnia (3) Lactic acidosis: Status: Acute Code(s): E87.20 - Acidosis, unspecified (4) Respiratory acidosis: Status: Acute Code(s): E87.29 - Other acidosis (5) Cocaine use: Status: Acute Code(s): F14.90 - Cocaine use, unspecified, uncomplicated Medications at Discharge Home Medications amoxicillin 875 mg-potassium clavulanate 125 mg tablet 1 tab PO BID #10 tabs 04/13/23 Hospital Course Operations None Procedures EKG and - (Chest x-ray/CT chest) Summary of Care Provided Minutes Spent on Discharge: 36 Hospital Course: Mr. Mays is a 32 M who presented to the emergency department at [facility] on 04/12/2023 after being brought in by EMS for mental status change. EMS stated that they were called to a alliance party where multiple people had overdose. They stated that when they arrived this patient was unresponsive and breathing minimally. They report they gave 7 doses of Narcan before he began to arouse. His mental status continued to be to depressed after the Narcan and he had multiple bouts of nausea and vomiting with increased work of breathing. The patient admitted to alcohol use on the night prior to admission but denied any illicit drug use and is unsure what caused him to come to the hospital. The patient adamantly denied any other illicit use drugs despite his toxicology screen being positive for cocaine. Per discussion with the ER physician almost all of the people brought in were able to respond to Narcan and were sent home so we are wondering whether or not the cocaine that was used was laced with fentanyl as well as this would not be detected on her toxicology screen. The ER physician stated he was coughing up some pink frothy phlegm when he came in so there was concern that he had some flash pulmonary edema related to the cocaine use however there is no clinical data that suggest heart failure or flash pulmonary edema at this time. Vital signs on presentation showed a temperature of 97.2, heart rate of 107, blood pressure 121/64, oxygen saturation 85% on 15 L high flow. Patient was placed on BiPAP and this improved his oxygen saturations up into the 95 to 99% range however he started having vomiting so a had to be taken off BiPAP. His blood pressure subsequently dropped as well with a low of 71/55 and he was given 2 L of IV fluid. Blood pressure has responded to IV fluids and most recent pressure is 96/86. He is currently on high flow oxygen at 11 L/min. CBC is unremarkable. His chemistry panel shows a mild acidosis with a bicarb of 19 and an anion gap of 15 which is right at the cutoff for an elevated anion gap. His BUN is 11 but his serum creatinine is 1.53 and he has no baseline history of renal disease and we have no previous data in our system. His blood glucose was 198 and his calcium was normal. Lactic acid was 4.3. BNP was 5.7. His toxicology screen was positive for cocaine and his alcohol level was 183. An ABG was obtained and it appears that he has a mixed metabolic and respiratory acidosis with a pH of 7.28/pCO2 of 45.6/pO2 of 96 on heated high flow at 15 L/min. Chest x-ray shows bilateral patchy airspace disease consistent with bilateral pneumonia and CT of the chest shows the same. EKG is normal sinus rhythm with normal intervals and no ischemic changes. Emergency department he was treated with 2 L of IV fluids, Unasyn for aspiration coverage, Reglan x 1, nitroglycerin due to concern for flash pulm edema and Zofran. He was initially admitted to the ICU and placed on antibiotics for aspiration coverage as well as atypical coverage. Strep pneumo and Legionella antigens were obtained and were negative. He was unable to produce a sputum culture. His COVID-19 test was positive. We highly suspect his respiratory distress was aspiration pneumonitis in combination with his COVID-19 infection. Throughout the day on 04/12/2023 his mental status slowly improved to the point where able to feed him. By the a.m. of 04/13/2023 he was feeling well and on room air. We did an ambulatory pulse ox at the time of discharge and he did not need oxygen at rest or with exertion having oxygen saturations of 99 and 97% respectively. We did cover him with Augmentin to complete a 5-day total course of antibiotics for suspected aspiration. He did not need any further treatment for his COVID-19 but we did instruct him to isolate himself through 04/17/2023 and then wear a mask 05/02/2023. He was able to be discharged home in stable condition improving more quickly than anticipated on 04/13/2023. Discharge diagnoses: Acute hypoxic and hypercapnic respiratory failure Aspiration pneumonia/pneumonitis Suspected opiate overdose Acute COVID-19 infection LILY-resolved Toxic/metabolic encephalopathy-resolved Cocaine use Physical Exam Const alert, oriented x3, no apparent distress, average body habitus, no limitations, healthy appearing and well nourished Constitutional Narrative: Young, white male, muscular body habitus, sitting up in chair at the bedside, appears comfortable and nontoxic, watching television, on room air General Appearance: cooperative, comfortable, well kempt and well developed Orientation / Consciousness: awake, oriented to person, oriented to place and oriented to time Exam Limitations: no limitations HEENT normocephalic, head/scalp atraumatic, hearing grossly normal bilaterally and moist oral mucous membranes HEENT Narrative: Mallampati is 3, no thrush, did not good Eyes PERRL and conjunctivae normal Eyes Narrative: No scleral icterus Neck no lymphadenopathy and supple Neck Narrative: Trachea is midline, no thyroid enlargement Resp normal respiratory effort, no retractions, no use of accessory muscles and clear to auscultation bilaterally Auscultation: Negative for rales, rhonchi or wheezes Cardio regular rate, regular rhythm, S1 normal heart sound, S2 normal heart sound, no murmurs, no rub, no gallops and no clicks GI normal to inspection, nondistended, normoactive bowel sounds, soft to palpation and non-tender Extremity no clubbing, cyanosis or edema Extremity Narrative: Pedal pulses are 2+ Skin no rashes or lesions noted, no wounds, skin turgor normal, no jaundice, no petechiae and no mottling Neuro oriented x3, CN's II-XII intact bilaterally, moves all extremities and no focal motor deficits Sensorium / Orientation: awake, alert, oriented to person, oriented to place and oriented to time Speech: speech normal Psych affect normal Psych Narrative: Eye contact is good, patient interacts appropriately Weight / BMI Weight Weight: 99.1 kg Body Mass Index (BMI) 29.6 ABG / Lab / Microbiology Data 04/13/23 05:28 04/13/23 05:28 Laboratory: Laboratory Results - last 24 hr 04/12/23 12:00: Lactic Acid 1.7, Alkaline Phosphatase 21 L, Procalcitonin 0.24 H 04/13/23 05:28: WBC 13.3 H, RBC 4.51 L, Hgb 13.4, Hct 42.3, MCV 93.8, MCH 29.7, MCHC 31.7 L, RDW Std Deviation 45.2 H, RDW Coeff of Behzad 13.2, Plt Count 315, MPV 9.0, Immature Gran % (Auto) 0.500, Neut % (Auto) 90.0 H, Lymph % (Auto) 5.8 L, [place] % (Auto) 3.4, Eos % (Auto) 0.1, Baso % (Auto) 0.2, Absolute Neuts (auto) 12.0 H, Absolute Lymphs (auto) 0.77 L, Nucleated RBC % 0, Sodium 139, Potassium 4.4, Chloride 107, Carbon Dioxide 23.0, Anion Gap 9, BUN 15, Creatinine 0.96, Estim Creat Clear Calc 120.13, Est GFR (MDRD) Af Amer 116, Est GFR (MDRD) Non-Af 96, BUN/Creatinine Ratio 15.6, Glucose 127 H, Calcium 8.0 L, Phosphorus 3.6, Magnesium 2.3, Total Bilirubin 0.90, AST 33, ALT 31, Alkaline Phosphatase 21 L, Total Protein 6.5, Albumin 3.0 L, Globulin 3.5, Albumin/Globulin Ratio 0.9, Procalcitonin 0.27 H Microbiology: Microbiology 04/12/23 06:15 Urine, Random Legionella Antigen - Final 04/12/23 06:15 Urine, Random Streptococcus pneumoniae Antigen (M - Final 04/12/23 09:27 Mucosa - Nasopharyngeal Coronavirus COVID-19 PCR - Final SARS-CoV-2 (COVID 19 PCR) 04/12/23 09:27 Mucosa - Nasopharyngeal Respiratory Panel (PCR) - Final D/C Instructions Discharge Diet: No restrictions Return to work on: 04/17/23 (Wear a mask for 5 days from 04/17/2023 through 04/22/2023) Meaningful Use Info Meaningful Use Diagnoses (Choose all that apply): None applicable Discharge Plan Admission Admit Date/Time: 04/12/23 08:48 Primary Reason for Your Visit: Altered mental status Attending Provider: Alicia Gusman Primary Care Provider: Care Physician,No Primary Consulting Providers: Curry Parry; Shoaib Chavez; Maldonado Mcneill; Naseem Martel; Keyur Chao; Susan Herrera PLACEMENT SPECIALIST Instructions Additional Instructions / Restrictions: 1. You were found to have a COVID-19 infection on 04/12/2023. Recommend isolation for 5 days through 04/17/2023 and then for 5 days following wear a mask in public places and when around people. 2. Please complete your antibiotics. Discharge Orders/Prescriptions Prescriptions: New amoxicillin-pot clavulanate 875-125 mg tablet 1 tab PO BID Qty: 10 0RF Referrals / Follow Up: Care Physician,No Primary [Primary Care Provider] - Disposition Disposition (needs filled in before D/C Order can be placed): Home, Self Care Charges/Coding Visit Charges Inpatient E&M: 24504 Disch Hosp >30min
== END 2023-04-13 12:33 | disposition home or self-care (01) | DRG 917 ==
LOC: ED 07:53 → ICU 09:25 → PCU 13:53
PROVIDERS: Internal Medicine; Admitting Provider Internal Medicine; Emergency Provider Emergency Medicine; Visit Provider Internal Medicine
DX: T40.2X1A Poisoning by other opioids, accidental (unintentional), initial encounter (principal); U07.1 COVID-19; J96.01 Acute respiratory failure with hypoxia; J69.0 Pneumonitis due to inhalation of food and vomit; G92.8 Other toxic encephalopathy; J96.02 Acute respiratory failure with hypercapnia; N17.9 Acute kidney failure, unspecified; E87.4 Mixed disorder of acid-base balance; F10.129 Alcohol abuse with intoxication, unspecified; F14.90 Cocaine use, unspecified, uncomplicated; E86.0 Dehydration; Y90.6 Blood alcohol level of 120-199 mg/100 ml
CPT/HCPCS: 36415; 36600; 71045; 71250; 80048; 80053; 80076; 80307; 80320; 82803; 83605; 83735; 83880; 84075; 84100; 84145; 85025; 87040; 87449; 87633; 87635; 93005; 94002; 94668; 99252; 99285; J7030; J7040; J7050; A4216; G0463; G0480; J0248; J0295; J2405